=== PATIENT | male | born 2000 | race Caucasian/White ===

== ENCOUNTER 2019-03-30 07:17 | Emergency (ER) | payer SELFPAY ==
[~2019-03-30] VITALS: Ht 167.6 cm; Wt 86.4 kg
[2019-03-30 07:19] VITALS: BP 159/71; TEMP 98.7
[2019-03-30 08:00] LABS: BASO % 0.2 % (0.0-2.0); EOS # 0.1 (0.0-0.7); EOS % 0.4 % (0-4.0); GRAN # 14.5 (1.4-6.5); GRAN % 86.5 % (42.2-75.2); HEMOGLOBIN 15.6 g/dl (12.5-16.1); LYMPH # 1.2 (1.2-3.4); LYMPH % 7.2 % (20.0-51.0); MEAN CELL VOLUME 83 fl (80.0-95.0); MEAN CORPUSCULAR HEMOGLOBIN 30 pg (26.0-32.0); MEAN CORPUSCULAR HGB CONC 36 g/dl (33.0-37.0); MEAN PLATELET VOLUME 9.4 fl (7.4-10.4); MONO # 0.9 (0.1-0.6); MONO % 5.4 % (1.7-9.3); PLATELET COUNT 270 K/mm3 (130-400); RED BLOOD COUNT 5.29 M/mm3 (4.20-5.60); REDCELL DISTRIBUTION WIDTH-CV 12.6 % (11.5-14.5)
[2019-03-30 08:13] LABS: STREP SCREEN NEGATIVE
[2019-03-30] MEDS ORDERED: AMOXICILLIN 8751 TAB PO (08:30)
[2019-03-30 08:54] VITALS: PULSE 85
== END 2019-03-30 08:56 | disposition home or self-care (01) ==
LOC: COL.ER 07:17
PROVIDERS: Family Medicine
DX: J32.9 Chronic sinusitis, unspecified (principal); J02.9 Acute pharyngitis, unspecified
CPT/HCPCS: J7030